=== PATIENT | male | born 1970 | race Two or more races ===

== ENCOUNTER 2020-10-31 07:49 | Inpatient (IN) | payer OTHER ==
[~2020-10-31] VITALS: Ht 182.9 cm; Wt 111.1 kg
[2020-11-09] MEDS ORDERED: HYOSCYAMINE0.125 M1 SL (10:42)
[2020-11-09] MEDS ORDERED: GABAPENTIN300 MG PO (10:43)
[2020-11-09] MEDS ORDERED: PERCOCET 5-3251 EACH PO (10:43)
== END 2020-11-09 11:58 | disposition home or self-care (01) | DRG 803 ==
LOC: ER 07:49 → SURH 15:47
PROVIDERS: ADMIT Surgery; ATTEND Surgery
PROC: 30233N1 Transfusion of Nonautologous Red Blood Cells into Peripheral Vein, Percutaneous Approach (ICD-10-PCS; 2020-10-31)
PROC: 3E0F7SF Introduction of Other Gas into Respiratory Tract, Via Natural or Artificial Opening (ICD-10-PCS; 2020-11-03)
PROC: 07BB4ZX Excision of Mesenteric Lymphatic, Percutaneous Endoscopic Approach, Diagnostic (ICD-10-PCS; 2020-11-03)
PROC: 0DTF4ZZ Resection of Right Large Intestine, Percutaneous Endoscopic Approach (ICD-10-PCS; principal; 2020-11-03 13:00)
DX: D64.89 Other specified anemias (principal); C18.0 Malignant neoplasm of cecum; R59.0 Localized enlarged lymph nodes; T80.1XXA Vascular complications following infusion, transfusion and therapeutic injection, initial encounter; I80.8 Phlebitis and thrombophlebitis of other sites; Z20.822 Contact with and (suspected) exposure to COVID-19

== ENCOUNTER 2020-11-13 09:38 | Emergency (ER) | payer OTHER ==
[~2020-11-13] VITALS: Ht 182.9 cm; Wt 108.0 kg
[~2020-11-13 09:38] MED LIST: GABAPENTIN300 MG PO; HYOSCYAMINE0.125 M1 SL; PERCOCET 5-3251 EACH PO
== END 2020-11-13 14:26 | disposition home or self-care (01) ==
LOC: ER 09:38
DX: R60.0 Localized edema (principal)